=== PATIENT | male | born 1950 | race Caucasian/White ===

== ENCOUNTER 2019-03-25 10:30 | Outpatient (RCR) | payer MEDICARE, BC, SELFPAY ==
--- NOTE | 2019-01-02 12:01 | HP.PTEVAL ---
Patient's Visit Information RAHUL MERCHANT is a 68 year old M referred to Physical Therapy by John Anderson MD with a diagnosis of L TKA. Date of Evaluation: 01/02/19 Physical Therapist: Kristian Cabezas PT, ATC - Visit Plan Frequency: 2-3x /Week Duration: 4-6 Weeks Plan: L knee stretching and strengthening, PROM/mobs, core strengthening, bike, and HEP - Subjective Findings: DOS: 12/31/18. Pt reports his L knee has been sore for a couple months. Pt reports he went to see his DrIraida which took xrays and revealed he was bone on bone at that time. Pt reports his knee would swell throughout the day and he would have trouble walking as the day goes on. Pt reports he is feeling much better since having the surgery. Pt reports he is still in a lot of pain this date. No tingling or numbness at this time. Pt reports occasional sleep difficulty secondary to pain. Pt reports he is an avid golfer and wants to get back to it soon. Pt lives in a 2 story house and must negotiate them one step at a time. Pt reports he recently had L/S surgery and it is his back that limits him the most. 3/10 pain at rest, 6/10 pain at worst. - Pain L knee Pain Intensity (Out of 10): 3 Pain Intensity Range: 6 - Objective Neuro: B LE sensation is WNL to light touch. B achilles reflex= 2/3. Girth at joint line: L knee 42, R knee 38 cm. Observation: Incision is healing well. No obvious signs of infection. ROM: R knee 0-5-135; L knee 0-20-88 degrees. MMT: R knee 5/5, L knee 3/5 - Goals Goal 1:: Decrease L knee pain x 50% to aid with sleep Goal Time Frame: 4-6 Weeks Goal 2:: Increase L knee strength x 1 grade to aid with stair negotiation Goal Time Frame: 4-6 Weeks Goal 3:: Increase L knee ROM x 30 degrees to aid with restoring a more normalized gait pattern Goal Time Frame: 4-6 Weeks Goal 4:: I with HEP Goal Time Frame: 4-6 Weeks - Rehabilitation Potential Physical Therapy Diagnosis: L knee pain, weakness, and limited ROM secondary to L TKA Rehabilitation Potential: Good - Anticipated Interventions Patient/Client Instruction: Educate patient on: Condition, Plan of Care For the Purpose of:: To improve self management Therapeutic Exercise to Include: Strength training, Endurance training, Balance training, Flexibilty training, Gait and locomotor training, Passive ROM, Dynamic Lumbar Stabilization For the Purpose of:: To decrease pain, To increase ROM, To improve muscle performance and motor function Cryotherapy (ice pack, ice massage): Yes For the Purpose of:: To decrease pain Thank you for the opportunity to evaluate your patient. For Medicare and Medicare HMO plans, please review the plan of care and approve it. It will need to be FAXED BACK to us at [phone] for Medicare purposes. For Medicare only, by signing this I certify the plan of care. Please let me know if there are questions or concerns regarding this plan of care. Physician Signature: Date:
--- NOTE | 2019-03-27 08:02 | HP.PT.NRP ---
HP - Discharge Summary (1) - Patient Information RAHUL MERCHANT was seen in my office for initial evaluation on 01/02/19. The following Plan of Care was established for this patient: Initial Frequency: 2-3x /Week Initial Duration: 4-6 Weeks - Anticipated Interventions Patient/Client Instruction: Educate patient on: Condition, Plan of Care For the Purpose of:: To improve self management Therapeutic Exercise to Include: Strength training, Endurance training, Balance training, Flexibilty training, Gait and locomotor training, Passive ROM, Dynamic Lumbar Stabilization For the Purpose of:: To decrease pain, To increase ROM, To improve muscle performance and motor function Cryotherapy (ice pack, ice massage): Yes For the Purpose of:: To decrease pain This patient was last seen in our office . Pertinent comments regarding their Physical therapy will appear below: Pt planning to cancel remaining visits as result of his daughter having a major surgery next week and he will be in [facility] helping her out for a few weeks. At this point I will be discontinuing this patient from physical therapy. I would be happy to see this patient again in the future if found appropriate by the physician. Thank you! Kristian Cabezas, PT, ATC
== END 2019-03-25 19:00 | disposition home or self-care (01) ==
LOC: PT 10:30
PROVIDERS: Family Provider Family Medicine; PCP Family Medicine; Referring Provider Specialist; Visit Provider Specialist
DX: M17.12 Unilateral primary osteoarthritis, left knee (principal)
CPT/HCPCS: 97110; 97116; 97140; 97161

== ENCOUNTER 2020-07-27 09:04 | Outpatient (RCR) | payer MEDICARE, BC, SELFPAY | END 2020-07-27 23:59 | LOC: IMMUN 09:04 | PROVIDERS: PCP Family Medicine; Referring Provider Family Medicine; Visit Provider Family Medicine | DX: Z23 Encounter for immunization (principal) | CPT/HCPCS: 0011A; 0012A ==